=== PATIENT | female | born 1985 | race Caucasian/White ===

== ENCOUNTER 2021-07-15 05:45 | Inpatient (IN) | payer OTHER ==
[2021-07-15] MEDS ORDERED: ELECTROLYTE-148 SOLN 500 ML IV ONE (06:00)
[2021-07-15] MEDS ORDERED: CITRIC ACID/SODIUM CITRATE 30 ML UNIT-DOSE CUP PO ONE (06:00)
[2021-07-15 06:23] VITALS: BMI 29.8
[2021-07-15] MEDS ORDERED: ELECTROLYTE-148 SOLN 500 ML IV SCH (07:00)
[2021-07-15] MEDS ORDERED: OXYTOCIN 20 UNITS in 0.9% NS 20 UNIT/1,000 ML INFUS.BAG IV ONE (08:01)
[2021-07-15] MEDS ORDERED: morphine SULFATE/PF 1 MG/2 ML (2cc Syringe - QUVA) EP ONE (08:10)
[2021-07-15] MEDS ORDERED: ELECTROLYTE-148 SOLN 1,000 ML IV SCH (08:15)
[2021-07-15] MEDS ORDERED: ACETAMINOPHEN 325 MG TABLET (FP) PO PRN (09:13)
[2021-07-15] MEDS ORDERED: METHYLERGONOVINE MALEATE 0.2 MG/1 ML AMP IM PRN (09:13)
[2021-07-15] MEDS ORDERED: OXYTOCIN 20 UNITS in 0.9% NS 20 UNIT/1,000 ML INFUS.BAG IV SCH (09:15)
[2021-07-15] MEDS ORDERED: ONDANSETRON 4 MG/2 ML VIAL IVPUSH PRN (09:17)
[2021-07-15] MEDS ORDERED: ACETAMINOPHEN 1000 MG/100 ML BAG IVPB ONE (09:19)
[2021-07-15 10:42] LABS: HIV INTERPRETATION NEGATIVE (NEGATIVE)
[2021-07-15] MEDS: IBUPROFEN 800 MG/8 ML IJ IVPB PRN (10:59)
[2021-07-15] MEDS: PRENATAL VITAMINS W/ FOLIC ACID TABLET (FP) PO SCH (11:11)
[2021-07-15] MEDS ORDERED: oxyCODONE HCL 5 MG TABLET PO PRN ×3 (15:10→21:14)
[2021-07-15] MEDS: ACETAMINOPHEN 1000 MG/100 ML BAG IVPB PRN (15:39)
[2021-07-16] MEDS: IBUPROFEN 800 MG/8 ML IJ IVPB PRN ×2 (00:34→08:48)
[2021-07-16] MEDS: ACETAMINOPHEN 1000 MG/100 ML BAG IVPB PRN (05:12)
[2021-07-16 08:16] LABS: BASO % 0.2 % (0-2.0); EOS % 0.9 % (0-4.5); HEMOGLOBIN 10.9 GM/dL (10.7-15.3); LYMPH % 10.9 % (8-40); MCH 30.8 pg (25.7-33.7); MEAN CELL VOLUME 90.7 fl (80-96); MEAN PLT VOLUME 11.1 fl (7.5-11.1); MONO % 8.4 % (3.8-10.2); NEUT % 79.6 % (42.8-82.8); PLATELET COUNT 151 10^3/uL (134-434); RBC 3.53 M/mm3 (3.60-5.2); RDW 12.9 % (11.6-15.6); WHITE BLOOD COUNT 11.9 K/mm3 (4.0-10.0)
[2021-07-16] MEDS: PRENATAL VITAMINS W/ FOLIC ACID TABLET (FP) PO SCH (09:22)
[2021-07-16] MEDS: oxyCODONE HCL 5 MG TABLET PO PRN ×3 (14:43→15:54)
[2021-07-16] MEDS: BISACODYL 10 MG SUPP.RECT RC PRN ×2 (14:44→19:35)
[2021-07-16] MEDS: SIMETHICONE 80 MG TAB.CHEW (FP) PO PRN ×2 (19:10→22:26)
[2021-07-16] MEDS: SENNOSIDES/DOCUSATE COMBO (SENNA PLUS) TABLET (UD) PO PRN (19:10)
[2021-07-16] MEDS: IBUPROFEN 600 MG TABLET (FP) PO PRN (19:10)
[2021-07-17] MEDS: IBUPROFEN 600 MG TABLET (FP) PO PRN ×4 (04:53→20:55)
[2021-07-17] MEDS: SIMETHICONE 80 MG TAB.CHEW (FP) PO PRN ×4 (04:53→20:55)
[2021-07-17] MEDS: PRENATAL VITAMINS W/ FOLIC ACID TABLET (FP) PO SCH (09:37)
[2021-07-17 13:06] VITALS: TEMP 98
[2021-07-17] MEDS: SENNOSIDES/DOCUSATE COMBO (SENNA PLUS) TABLET (UD) PO PRN (20:56)
[2021-07-18] MEDS: IBUPROFEN 600 MG TABLET (FP) PO PRN ×2 (04:21→09:09)
[2021-07-18] MEDS: SIMETHICONE 80 MG TAB.CHEW (FP) PO PRN (09:09)
[2021-07-18] MEDS: PRENATAL VITAMINS W/ FOLIC ACID TABLET (FP) PO SCH (09:09)
[2021-07-18 09:48] VITALS: BP 111/70; PULSE 70
== END 2021-07-18 11:45 | disposition home or self-care (01) | DRG 540 ==
LOC: JLDR 05:45 → J3W 10:30
PROVIDERS: ADMIT Obstetrics & Gynecology; ATTEND Obstetrics & Gynecology
PROC: 10D00Z1 Extraction of Products of Conception, Low, Open Approach (ICD-10-PCS; principal; 2021-07-15)
DX: O82 Encounter for cesarean delivery without indication (principal); O69.89X0 Labor and delivery complicated by other cord complications, not applicable or unspecified; Z3A.36 36 weeks gestation of pregnancy; Z37.0 Single live birth
CPT/HCPCS: 36415; 80048; 85025; 85610; 85730; 86780; 86850; 86900; 86901; 87389; 88307-TC; C9803; U0003; U0005

== ENCOUNTER 2024-04-26 06:00 | Inpatient (IN) | payer OTHER ==
[2024-04-26] MEDS: LACTATED RINGERS SOLUTION 500 ML IV ONE (06:20)
[2024-04-26 06:38] VITALS: BMI 29.5
[2024-04-26] MEDS: LACTATED RINGERS SOLUTION 1,000 ML IV SCH (06:45)
[2024-04-26] MEDS ORDERED: morphine SULFATE/PF 1 MG/2 ML (2cc Syringe - QUVA) ONE (07:53)
[2024-04-26] MEDS ORDERED: FENTANYL CITRATE/PF 50 MCG/ML VIAL ONE (07:53)
[2024-04-26] MEDS: CITRIC ACID/SODIUM CITRATE 30 ML UNIT-DOSE CUP PO ONE (08:00)
[2024-04-26] MEDS ORDERED: ceFAZolin SODIUM 1 GM VIAL ONE (08:45)
[2024-04-26] MEDS ORDERED: ONDANSETRON 4 MG/2 ML VIAL ONE (08:45)
[2024-04-26] MEDS ORDERED: PHENYLEPHRINE HCL 10 MG/1 ML SINGLE DOSE VIAL ONE ×2 (08:58→09:09)
[2024-04-26] MEDS ORDERED: OXYTOCIN 10 UNITS/ML VIAL ONE ×2 (09:06→09:09)
[2024-04-26] MEDS ORDERED: ESMOLOL HCL 100,000 MCG/10 ML VIAL ONE (09:09)
[2024-04-26] MEDS ORDERED: OXYTOCIN 20 UNITS in 0.9% NS 20 UNIT/1,000 ML INFUS.BAG IV ONE (10:02)
[2024-04-26] MEDS ORDERED: ONDANSETRON 4 MG/2 ML VIAL IVPUSH PRN (10:03)
[2024-04-26] MEDS ORDERED: METHYLERGONOVINE MALEATE 0.2 MG/1 ML AMP IM PRN (10:03)
[2024-04-26] MEDS: OXYTOCIN 20 UNITS in 0.9% NS 20 UNIT/1,000 ML INFUS.BAG IV SCH (10:25)
[2024-04-26] MEDS: SIMETHICONE 80 MG TAB.CHEW (FP) PO PRN (19:22)
[2024-04-26] MEDS: IBUPROFEN 800 MG/8 ML IJ IVPB PRN (19:22)
[2024-04-26] MEDS ORDERED: oxyCODONE HCL 5 MG TABLET PO PRN ×2 (22:03)
[2024-04-26] MEDS: ACETAMINOPHEN 325 MG TABLET (FP) PO PRN (23:12)
[2024-04-27] MEDS: IBUPROFEN 600 MG TABLET (FP) PO PRN (06:12)
[2024-04-27 07:30] LABS: BASO % 0.2 % (0-2.0); EOS % 1.4 % (0-4.5); HEMATOCRIT 27.9 % (32.4-45.2); HEMOGLOBIN 9.3 GM/dL (10.7-15.3); MCH 30.7 pg (25.7-33.7); MCHC 33.3 g/dl (32.0-36.0); MEAN CELL VOLUME 92.2 fl (80-96); MEAN PLT VOLUME 10.3 fl (7.5-11.1); MONO % 9.6 % (3.8-10.2); NEUT % 71.8 % (42.8-82.8); PLATELET COUNT 142 10^3/uL (134-434); RBC 3.03 M/mm3 (3.60-5.2); RDW 13.5 % (11.6-15.6); WHITE BLOOD COUNT 7.2 K/mm3 (4.0-10.0)
[2024-04-27] MEDS: PRENATAL VITAMINS W/ FOLIC ACID TABLET (FP) PO SCH (09:24)
[2024-04-27] MEDS: FERROUS SO4 325 MG TABLET (FP) PO SCH (09:24)
[2024-04-27] MEDS: SENNOSIDES/DOCUSATE COMBO (SENNA PLUS) TABLET (UD) PO PRN (19:24)
[2024-04-28] MEDS: BISACODYL 10 MG SUPP.RECT RC PRN (09:17)
[2024-04-28 23:31] VITALS: RESP 18
[2024-04-29 10:13] VITALS: BP 114/78; PULSE 82; TEMP 98
== END 2024-04-29 12:25 | disposition home or self-care (01) | DRG 540 ==
LOC: JLDR 06:00 → J3W 12:15
PROVIDERS: ADMIT Obstetrics & Gynecology; ATTEND Obstetrics & Gynecology
PROC: 10D00Z1 Extraction of Products of Conception, Low, Open Approach (ICD-10-PCS; principal; 2024-04-26)
DX: O34.211 Maternal care for low transverse scar from previous cesarean delivery (principal); N85.8 Other specified noninflammatory disorders of uterus; Z3A.38 38 weeks gestation of pregnancy; Z37.0 Single live birth; O26.893 Other specified pregnancy related conditions, third trimester; M35.9 Systemic involvement of connective tissue, unspecified; L40.50 Arthropathic psoriasis, unspecified
CPT/HCPCS: 36415; 59409; 80053; 85025; 85610; 85730; 86704; 86705; 86780; 86803; 86850; 86900; 86901; 87340; 87389; 87517; 88307-TC